=== PATIENT | male | born 2000 | race Hispanic/Latino ===

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

== ENCOUNTER 2022-02-21 09:34 | Outpatient (CLI) | payer BC | END 2022-02-21 09:35 | disposition home or self-care (01) | LOC: BICMRI 09:34 | PROVIDERS: ATTEND Orthopaedic Surgery | DX: M23.92 Unspecified internal derangement of left knee (principal); S76.112A Strain of left quadriceps muscle, fascia and tendon, initial encounter; M67.88 Other specified disorders of synovium and tendon, other site ==